=== PATIENT | female | born 1985 | race African-American/Black ===

== ENCOUNTER 2017-09-30 07:06 | Emergency (ER) | payer BC ==
[2017-09-30] MEDS ORDERED: NS 0.9% 1000 ML* 1,000 ML IV ONE (07:44)
[2017-09-30] MEDS ORDERED: Ketorolac INJ* 30 MG/ML 1 ML VIAL IV ONE (07:44)
[2017-09-30 08:36] LABS: ABS Basophils 0 10^3/ul (0-0.2); ABS Eosinophils 0 10^3/ul (0-0.6); ABS Monocytes 0.4 10^3/ul (0-0.8); ABS Nucleated RBC 0 10^3/ul; Eosinophil % 0.6 % (0-6); Hematocrit 37 % (35-47); Hemoglobin 12.7 g/dl (12.0-16.0); Lymphocyte % 21.8 % (25-47); Mean Corpuscular HGB Conc 34 g/dl (31-36); Mean Corpuscular Hemoglobin 31 pg (27-31); Mean Corpuscular Volume 90 fL (80-97); Mean Platelet Volume 7 um3 (7.4-10.4); Nucleated Red Blood Cells % 0.1; Platelet Count 274 10^3/ul (150-450); Red Cell Distribution Width 14 % (10.5-15); White Blood Count 4.4 10^3/ul (3.5-10.8)
[2017-09-30 08:53] LABS: EGFR Non-African American 84.9 (>60)
[2017-09-30 08:55] LABS: INR 0.94 (0.77-1.02)
[2017-09-30] MEDS ORDERED: Iohexol 350* (CONTRAST) 500 ML MDV IV ONE (09:19)
--- NOTE | 2017-09-30 09:37 | RAD ---
INDICATION: Right upper quadrant pain COMPARISON: None TECHNIQUE: Longitudinal and transverse scans of the right upper quadrant were obtained. Doppler interrogation of the hepatic and portal venous system was performed. FINDINGS: Liver: The liver is normal in size and echogenicity. There are no focal masses. The liver measures 14.6 cm in cephalocaudal dimension. Vessels: There is normal hepatic and portal venous flow. Bile ducts: There is no evidence of intrahepatic or extrahepatic ductal dilatation. The common duct measures 0.3 cm. Gallbladder: There is a probable gallbladder polyp. There is no evidence of cholelithiasis, thickening of the gallbladder wall, or pericholecystic fluid. Pancreas: The visualized pancreas appears normal Right kidney: The right kidney is normal in size and echogenicity. There are no masses or calculi. There is no evidence of hydronephrosis. The right kidney measures 11.6 x 4.4 x 5.6 cm. IVC and aorta: The aorta and superior vena cava appear normal. Fluid: There is no ascites. Other: None. IMPRESSION: NO CT EVIDENCE OF CHOLELITHIASIS. INCIDENTAL SMALL GALLBLADDER POLYP
--- NOTE | 2017-09-30 11:43 | RAD ---
INDICATION: LEFT posterior splinting chest pain and RIGHT upper quadrant pain. COMPARISON: September 30, 2017 RIGHT upper quadrant ultrasound. TECHNIQUE: Multidetector CT images were obtained from the lung apices to the ischial tuberosities with 100 mL Omnipaque 350 IV contrast. Oral contrast administered. CT pulmonary angiogram protocol. Multiplanar reformation including maximum intensity projection images of the thorax. CHEST REPORT: Image 23; 4 mm noncalcified nodule at the LEFT upper lobe. Negative for pleural effusion. Small volume of residual tissue at the anterior mediastinum. Negative for thoracic lymphadenopathy, cardiomegaly, pericardial effusion. Normal diameter thoracic aorta. Large body habitus limits sensitivity of the CT pulmonary angiogram. The exam is nondiagnostic the on the level of the segmental pulmonary arteries. No compelling evidence for central pulmonary embolism. Negative for thoracic fracture or suspicious focal osseous lesion. CHEST IMPRESSION: 1. Limited CT pulmonary angiogram due to obese body habitus. There is no compelling evidence for central pulmonary embolism. 2. Incidental low suspicion based on small size 4 mm nodule at the LEFT upper lobe. Consider noncontrast CT for reassessment in 12 months time. ABDOMEN PELVIS REPORT: Obese body habitus limits image quality. No CT abnormality of the liver, gallbladder, pancreas, spleen. Small splenule inferior to the dominant spleen. Potential mural thickening at the gastric fundus and body however incomplete gastric distention limits assessment. No CT abnormality of the small bowel loops or medially extending appendix most conspicuous on the coronal reformatted series images 51-54. Negative for CT abnormality of the colon. Enteric contrast extends to the descending colon. Physiologic small volume of free pelvic fluid. Negative for free air or hernias. Normal adrenal glands. Unremarkable kidneys with symmetric contrast excretion. No CT abnormality along the course of the nondilated ureters. Unremarkable partially distended urinary bladder as well as the uterus and adnexal regions. Negative for lymphadenopathy. Normal diameter abdominal aorta and iliac arteries. Physiologic distention of the IVC. 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 Negative for suspicious focal osseous lesions. ABDOMEN PELVIS IMPRESSION: No acute abdominal pelvic pathologic process evident. Normal appendix documented.
--- NOTE | 2017-09-30 12:30 | ED ---
Jg Fragoso Angela, scribed for Jim Myers MD on 09/30/17 at 0734 . Abdominal Pain/Female - HPI Summary HPI Summary: This pt is a 32 y/o female presenting to [facility] c/o left sided upper back pain x2 days and intermittent RUQ abd pain for "a long time now." Pt reports she went to [place] over the weekend 4 days ago to take some pictures of the du. Her upper back pain is rated 7/10 in severity. Her back pain is aggravated with deep breaths and coughing. Her back pain is slightly alleviated with leaning forward. Eating does not aggravate her RUQ abd pain. She notes she feels a little SOB, has had loose stools ("for a while"). Denies cough, rashes, LE swelling, LE pain, urinary symptoms. She came in today because her pain was still there upon waking up. Pt has not taken anything for the pain. She denies hx of blood clots. Pt is not a smoker. Pt does not take any medications. NKDA. - History of Current Complaint Chief Complaint: EDFlankPain Stated Complaint: BACK PAIN Hx Obtained From: Patient Onset/Duration: Lasting Days, Still Present Timing: Days Severity Currently: Severe Pain Intensity: 7 Pain Scale Used: 0-10 Numeric Location: Discrete At: RUQ Radiates: No Aggravating Factor(s): Nothing Alleviating Factor(s): Nothing Associated Signs and Symptoms: Positive: Back Pain - left upper back pain, Other : - POS: SOB, loose stools. Negative: Cough, Constipation, Urinary Symptoms Allergies/Adverse Reactions: Allergies Allergy/AdvReac Type Severity Reaction Status Date / Time No Known Allergies Allergy Verified 09/30/17 07:16 PMH/Surg Hx/FS Hx/Imm Hx Endocrine/Hematology History: Denies: Hx Diabetes Cardiovascular History: Denies: Hx Hypertension Infectious Disease History: No Infectious Disease History: Denies: Traveled Outside the [place] in Last 30 Days - Family History Known Family History: Positive: Cardiac Disease, Hypertension, Diabetes - Social History Alcohol Use: Daily Alcohol Amount: beer daily Substance Use Type: Reports: None Smoking Status (MU): Former Smoker Review of Systems Negative: Fever, Chills Positive: Shortness Of Breath. Negative: Cough Gastrointestinal: Other - loose stools Positive: Abdominal Pain - RUQ. Negative: Vomiting, Nausea Positive: no symptoms reported Musculoskeletal: Other - lef upper back pain Negative: Edema, Other - LE pain Negative: Rash All Other Systems Reviewed And Are Negative: Yes Physical Exam - Summary Physical Exam Summary: General: well-appearing, no pain distress Skin: warm, color reflects adequate perfusion, dry. No rash. Head: normal Eyes: EOMI, SANDEEP ENT: normal Neck: supple, nontender Respiratory: CTA, breath sounds present Cardiovascular: RRR Abdomen: soft, nontender Bowel: present Musculoskeletal: strength/ROM intact. Mild tenderness to palpation on the paraspinal muscles to the left of the thoracic spine at the level of approximate T8. No calf tenderness. Neurological: normal, sensory/motor intact, A&O x3 Psychological: affect/mood appropriate Triage Information Reviewed: Yes Vital Signs On Initial Exam: Initial Vitals Temp Pulse Resp BP Pulse Ox 98.1 F 82 18 141/84 100 09/30/17 07:07 09/30/17 07:07 09/30/17 07:07 09/30/17 07:07 09/30/17 07:07 Vital Signs Reviewed: Yes - Asher Coma Scale Coma Scale Total: 15 Diagnostics - Vital Signs Vital Signs Temp Pulse Resp BP Pulse Ox 09/30/17 07:07 98.1 F 82 18 141/84 100 - Laboratory Lab Results: Lab Results 09/30/17 09/30/17 09/30/17 Range/Units 08:25 08:25 08:25 WBC (3.5-10.8) 10^3/ul RBC (4.0-5.4) 10^6/ul Hgb (12.0-16.0) g/dl Hct (35-47) % MCV (80-97) fL MCH (27-31) pg MCHC (31-36) g/dl RDW (10.5-15) % Plt Count (150-450) 10^3/ul MPV (7.4-10.4) um3 Neut % (Auto) (38-83) % Lymph % (Auto) (25-47) % Wallace % (Auto) (1-9) % Eos % (Auto) (0-6) % Baso % (Auto) (0-2) % Absolute Neuts (auto) (1.5-7.7) 10^3/ul Absolute Lymphs (auto) (1.0-4.8) 10^3/ul Absolute Monos (auto) (0-0.8) 10^3/ul Absolute Eos (auto) (0-0.6) 10^3/ul Absolute Basos (auto) (0-0.2) 10^3/ul Absolute Nucleated RBC 10^3/ul Nucleated RBC % INR (Anticoag Therapy) 0.94 (0.77-1.02) APTT 29.8 (26.0-36.3) seconds Sodium 137 (133-145) mmol/L Potassium 3.9 (3.5-5.0) mmol/L Chloride 102 (101-111) mmol/L Carbon Dioxide 25 (22-32) mmol/L Anion Gap 10 (2-11) mmol/L BUN 11 (6-24) mg/dL Creatinine 0.79 (0.51-0.95) mg/dL Est GFR ( Amer) 109.2 (>60) Est GFR (Non-Af Amer) 84.9 (>60) BUN/Creatinine Ratio 13.9 (8-20) Glucose 98 (70-100) mg/dL Lactic Acid (0.5-2.0) mmol/L Calcium 9.1 (8.6-10.3) mg/dL Magnesium 1.8 L (1.9-2.7) mg/dL Total Bilirubin 0.60 (0.2-1.0) mg/dL AST 43 H (13-39) U/L ALT 65 H (7-52) U/L Alkaline Phosphatase 68 (34-104) U/L Total Creatine Kinase 97 (10-223) U/L CK-MB (CK-2) 1.3 (0.6-6.3) ng/mL Troponin I 0.00 (<0.04) ng/mL C-Reactive Protein 3.74 (< 5.00) mg/L B-Natriuretic Peptide 33 ( - 100) pg/mL Total Protein 6.9 (6.4-8.9) g/dL Albumin 4.0 (3.2-5.2) g/dL Globulin 2.9 (2-4) g/dL Albumin/Globulin Ratio 1.4 (1-3) Lipase 15 (11.0-82.0) U/L TSH 1.00 (0.34-5.60) mcIU/mL Beta HCG, Quant < 0.60 mIU/mL 09/30/17 09/30/17 Range/Units 08:25 08:25 WBC 4.4 (3.5-10.8) 10^3/ul RBC 4.10 (4.0-5.4) 10^6/ul Hgb 12.7 (12.0-16.0) g/dl Hct 37 (35-47) % MCV 90 (80-97) fL MCH 31 (27-31) pg MCHC 34 (31-36) g/dl RDW 14 (10.5-15) % Plt Count 274 (150-450) 10^3/ul MPV 7 L (7.4-10.4) um3 Neut % (Auto) 68.1 (38-83) % Lymph % (Auto) 21.8 L (25-47) % Wallace % (Auto) 9.0 (1-9) % Eos % (Auto) 0.6 (0-6) % Baso % (Auto) 0.5 (0-2) % Absolute Neuts (auto) 3.0 (1.5-7.7) 10^3/ul Absolute Lymphs (auto) 1.0 (1.0-4.8) 10^3/ul Absolute Monos (auto) 0.4 (0-0.8) 10^3/ul Absolute Eos (auto) 0 (0-0.6) 10^3/ul Absolute Basos (auto) 0 (0-0.2) 10^3/ul Absolute Nucleated RBC 0 10^3/ul Nucleated RBC % 0.1 INR (Anticoag Therapy) (0.77-1.02) APTT (26.0-36.3) seconds Sodium (133-145) mmol/L Potassium (3.5-5.0) mmol/L Chloride (101-111) mmol/L Carbon Dioxide (22-32) mmol/L Anion Gap (2-11) mmol/L BUN (6-24) mg/dL Creatinine (0.51-0.95) mg/dL Est GFR ( Amer) (>60) Est GFR (Non-Af Amer) (>60) BUN/Creatinine Ratio (8-20) Glucose (70-100) mg/dL Lactic Acid 0.7 (0.5-2.0) mmol/L Calcium (8.6-10.3) mg/dL Magnesium (1.9-2.7) mg/dL Total Bilirubin (0.2-1.0) mg/dL AST (13-39) U/L ALT (7-52) U/L Alkaline Phosphatase (34-104) U/L Total Creatine Kinase (10-223) U/L CK-MB (CK-2) (0.6-6.3) ng/mL Troponin I (<0.04) ng/mL C-Reactive Protein (< 5.00) mg/L B-Natriuretic Peptide ( - 100) pg/mL Total Protein (6.4-8.9) g/dL Albumin (3.2-5.2) g/dL Globulin (2-4) g/dL Albumin/Globulin Ratio (1-3) Lipase (11.0-82.0) U/L TSH (0.34-5.60) mcIU/mL Beta HCG, Quant mIU/mL Result Diagrams: 09/30/17 08:25 09/30/17 08:25 Lab Statement: Any lab studies that have been ordered have been reviewed, and results considered in the medical decision making process. - CT CTA chest/abdomen/pelvis CT Interpretation: No Acute Changes - Chest IMPRESSION: 1. Limited CT pulmonary angiogram due to obese body habitus. There is no compelling evidence for central pulmonary embolism. 2. Incidental low suspicion based on small size 4 mm nodule at the LEFT upper lobe. Consider noncontrast CT for reassessment in 12 months time. Abd/Pelvis IMPRESSION: No acute abdominal pelvic pathologic process evident. Normal appendix documented. Dr. yMers has reviewed this radiology report. CT Interpretation Completed By: Radiologist - Ultrasound No standard instances Ultrasound Interpretation: Positive (See Comments) - Gallbladder US IMPRESSION: No CT evidence of cholelithiasis. Incidental small gallbladder polyp. Dr. Myers has reviewed this radiology report. Ultrasound Interpretation Completed By: Radiologist - EKG 08:06 Cardiac Rate: NL EKG Rhythm: Sinus Rhythm - at [address] Segment: Normal Ectopy: None Re-Evaluation - Re-Evaluation First Eval Re-Evaluation Time: 12:09 Comment: I discussed US, CTA, and lab results with the pt. Abdominal Pain Fem Course/Dx - Course Course Of Treatment: Medications reviewed. CTA chest shows incidental low suspicion based on small size 4 mm nodule at the LEFT upper lobe. Gallbladder US reveals incidental small gallbladder polyp. In the ED course pt was given IV fluids and toradol injection. DISCUSSED RESULTS WITH PATIENT. F/U PMD; RETURN IF WORSE. - Diagnoses Provider Diagnoses: Chest pain, Pulmonary nodule, Upper abdominal pain Discharge - Discharge Plan Condition: Stable Disposition: HOME Patient Education Materials: Chest Pain (ED), Abdominal Pain (ED), Pulmonary Nodules (ED) Referrals: [facility] [Outside] Judy Felix NP [Primary Care Provider] - Additional Instructions: FOLLOW UP WITH YOUR DOCTOR. DISCUSS HAVING A REPEAT CHEST CT IN 12 MONTHS TO RE EVALUATE THE PULMONARY NODULE. TAKE OMEPRAZOLE FOR YOUR UPPER ABDOMINAL PAIN. TAKE IBUPROFEN (600MG EVERY 6 HOURS WITH FOOD) AND/OR NORCO DIRECTED NEEDED FOR YOUR CHEST PAIN. RETURN TO THE EMERGENCY DEPARTMENT FOR ANY WORSENING OF YOUR CONDITION; PAIN, SHORTNESS OF BREATH, FEVER, YOU FEEL ILL OR QUESTIONS OR CONCERNS. The documentation as recorded by the Jg blankenship Angela accurately reflects the service I personally performed and the decisions made by me, Jim Myers MD.
[2017-09-30 12:40] VITALS: BP 121/71
== END 2017-09-30 12:40 | disposition home or self-care (01) ==
LOC: ED 07:06
DX: R07.9 Chest pain, unspecified (principal); M54.9 Dorsalgia, unspecified; R10.10 Upper abdominal pain, unspecified; R91.1 Solitary pulmonary nodule
CPT/HCPCS: 36415; 71275; 74177; 76705; 80053; 82550; 82553; 83605; 83690; 83735; 83880; 84443; 84484; 84702; 85025; 85610; 85730; 86140; 93005; 99284; J1885; Q9967

== ENCOUNTER 2018-01-19 10:54 | Emergency (ER) | payer BC ==
[2018-01-19 12:32] LABS: ABS Basophils 0 10^3/ul (0-0.2); ABS Eosinophils 0 10^3/ul (0-0.6); ABS Lymphocytes 1.3 10^3/ul (1.0-4.8); ABS Monocytes 0.4 10^3/ul (0-0.8); ABS Neutrophils 3.4 10^3/ul (1.5-7.7); ABS Nucleated RBC 0 10^3/ul; Eosinophil % 0.5 % (0-6); Hematocrit 38 % (35-47); Mean Corpuscular HGB Conc 34 g/dl (31-36); Mean Corpuscular Hemoglobin 31 pg (27-31); Mean Corpuscular Volume 90 fL (80-97); Mean Platelet Volume 7.1 um3 (7.4-10.4); Nucleated Red Blood Cells % 0; Platelet Count 294 10^3/ul (150-450); Red Blood Count 4.22 10^6/ul (4.0-5.4); Red Cell Distribution Width 13 % (10.5-15); White Blood Count 5.1 10^3/ul (3.5-10.8)
[2018-01-19] MEDS ORDERED: Ondansetron ODT TAB* 4 MG PO ONE (12:34)
[2018-01-19] MEDS ORDERED: Raltegravir* 400 MG TAB PO ONE (12:34)
[2018-01-19] MEDS ORDERED: Tenofovir/Emtricitabine(*) TAB PO ONE (12:34)
[2018-01-19 14:16] VITALS: BP 00/0
--- NOTE | 2018-01-20 09:21 | ED ---
Elton Fragoso Jennifer, scribed for Maritza White MD on 01/19/18 at 1243 . - HPI Summary HPI Summary: The patient is a 32 year old female who accidentally stuck herself with a used needle today. 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 She describes the needle was a 22 gauge. The HIV status of the patient is unknown there will be an attempt to get consent from the individual who the needle had been used on in order to obtain bloodwork for infectious disease exposure. The patient reports there was bleeding and she immediately washed her hands after. She is up to date with vaccines and tetanus. 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 PMH/Surg Hx/FS Hx/Imm Hx Endocrine/Hematology History: Denies: Hx Diabetes Cardiovascular History: Denies: Hx Hypertension Infectious Disease History: No Infectious Disease History: Denies: Traveled Outside the [place] in Last 30 Days - Family History Known Family History: Positive: Cardiac Disease, Hypertension, Diabetes - Social History Alcohol Use: Daily Alcohol Amount: beer daily Substance Use Type: Reports: None Smoking Status (MU): Former Smoker Review of Systems Negative: Fever Positive: Other - Needlestick on thumb All Other Systems Reviewed And Are Negative: Yes Physical Exam - Summary Physical Exam Summary: GENERAL: ~Patient is a well developed and nourished F who is lying comfortable in the stretcher. ~Patient is not in any acute respiratory distress. HEAD AND FACE: Normocephalic EYES: PERRLA, EOMI x 2. EARS: Hearing grossly intact. MOUTH: Oropharynx within normal limits. NECK: Supple, trachea is midline, no adenopathy, no JVD, no carotid bruit. CHEST: Symmetric, no tenderness at palpation LUNGS: Clear to auscultation bilaterally. No wheezing or crackles. CVS: Regular rate and rhythm, S1 and S2 present, no murmurs or gallops appreciated. ABDOMEN: Soft, non-tender. Bowel sounds are normal. No abdominal abnormal pulsations. EXTREMITIES: Full ROM in all major joints, no edema, no cyanosis or clubbing. NEURO: Alert and oriented x 3. No acute neurological deficits. Speech is normal and follows commands. SKIN: Dry and warm Triage Information Reviewed: Yes Vital Signs On Initial Exam: Initial Vitals Temp Pulse Resp BP Pulse Ox 97.6 F 65 14 133/83 100 01/19/18 11:07 01/19/18 11:07 01/19/18 11:07 01/19/18 11:07 01/19/18 11:07 Vital Signs Reviewed: Yes Diagnostics - Vital Signs Vital Signs Temp Pulse Resp BP Pulse Ox 01/19/18 11:07 97.6 F 65 14 133/83 100 - Laboratory Lab Results: Lab Results 01/19/18 Range/Units 12:13 WBC 5.1 (3.5-10.8) 10^3/ul RBC 4.22 (4.0-5.4) 10^6/ul Hgb 13.0 (12.0-16.0) g/dl Hct 38 (35-47) % MCV 90 (80-97) fL MCH 31 (27-31) pg MCHC 34 (31-36) g/dl RDW 13 (10.5-15) % Plt Count 294 (150-450) 10^3/ul MPV 7.1 L (7.4-10.4) um3 Neut % (Auto) 66.4 (38-83) % Lymph % (Auto) 25.0 (25-47) % Duval % (Auto) 7.7 H (0-7) % Eos % (Auto) 0.5 (0-6) % Baso % (Auto) 0.4 (0-2) % Absolute Neuts (auto) 3.4 (1.5-7.7) 10^3/ul Absolute Lymphs (auto) 1.3 (1.0-4.8) 10^3/ul Absolute Monos (auto) 0.4 (0-0.8) 10^3/ul Absolute Eos (auto) 0 (0-0.6) 10^3/ul Absolute Basos (auto) 0 (0-0.2) 10^3/ul Absolute Nucleated RBC 0 10^3/ul Nucleated RBC % 0 Result Diagrams: 01/19/18 12:13 01/19/18 12:13 Lab Statement: Any lab studies that have been ordered have been reviewed, and results considered in the medical decision making process. 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 In the ED course the patient was given Zofran, Isentress, and Truvada. Bloodwork was obtained. The patient is diagnosed with needlestick. The patient is instructed to follow up with PCP in 3 days. - Diagnoses Provider Diagnoses: Needlestick injury accident Discharge - Sign-Out/Discharge Documenting (check all that apply): Discharge/Admit/Transfer - Discharge Plan Condition: Stable Disposition: HOME Patient Education Materials: Body Substance Exposure (ED) Referrals: Judy Felix NP [Primary Care Provider] - 3 Days Additional Instructions: Follow up with your primary care physician in three days. Return to the emergency department for any new or worsening symptoms. The documentation as recorded by the Elton blankenship Jennifer accurately reflects the service I personally performed and the decisions made by , Maritza White MD.
== END 2018-01-19 14:15 | disposition home or self-care (01) ==
LOC: ED 10:54
DX: S61.039A Puncture wound without foreign body of unspecified thumb without damage to nail, initial encounter (principal); W46.0XXA Contact with hypodermic needle, initial encounter; Y92.239 Unspecified place in hospital as the place of occurrence of the external cause; Z87.891 Personal history of nicotine dependence
CPT/HCPCS: 36415; 80053; 84702; 85025; 86703; 86706; 86803; 87340; 99282; A9270-GY